=== PATIENT | male | born 1995 | race Asian ===

== ENCOUNTER 2022-08-21 16:48 | Inpatient (IN) | payer MEDICAID, OTHER ==
[~2022-08-21] VITALS: Ht 175.3 cm; Wt 77.6 kg
[2022-08-21] MEDS ORDERED: SERT-162 PO (17:25)
[2022-08-21 17:41] LABS: COVID AG,FIA SOURCE NASOPHARYNGEAL
[2022-08-21 17:44] LABS: EOSINOPHILS % (AUTO) 1.8 % (1.0-6.0); HEMATOCRIT 37.9 % (41-53); HEMOGLOBIN 12.8 g/dL (13.5-17.5); LYMPHOCYTES # (AUTO) 0.3 K/uL (1.0-4.8); LYMPHOCYTES % (AUTO) 12.2 % (22.0-44.0); MEAN CORPUSCULAR HEMOGLOBIN 28.9 pg (26.0-34.0); MEAN CORPUSCULAR HGB CONC 33.7 G/dL (31.0-37.0); MEAN CORPUSCULAR VOLUME 86 fL (80-100); MONOCYTES % (AUTO) 1.7 % (2.0-9.0); NEUTROPHILS # (AUTO) 1.8 K/uL (1.8-7.7); NEUTROPHILS % (AUTO) 84.3 % (40.0-70.0); PLATELET COUNT (AUTO) 145 K/uL (150-450); RED BLOOD CELL COUNT(AUTO) 4.43 MIL/uL (4.50-5.90)
[2022-08-21 17:53] LABS: ANION GAP 12 mmol/L (8-16); CALCIUM, TOTAL 8.5 mg/dL (8.8-10.5); CARBON DIOXIDE 21 mmol/L (22-29); CHLORIDE 102 mmol/L (98-107); CREATININE 1.07 mg/dL (0.60-1.30); GLOMERULAR FILTR. RATE CALC > 60 mL/min (>60); GLUCOSE,RANDOM 115 mg/dL (70-110); POTASSIUM 3.2 mmol/L (3.5-5.1); SODIUM SERUM 135 mmol/L (136-145)
[2022-08-21 17:59] LABS: ALANINE AMINOTRANSFERASE 27 U/L (12-78); ALBUMIN 3.2 g/dL (3.4-5.0); ALKALINE PHOSPHATASE 68 U/L (46-116); ASPARTATE AMINOTRANSFERASE 16 U/L (15-37); BILIRUBIN,TOTAL 1.5 mg/dL (0.1-1.0); TOTAL PROTEIN, SERUM 7.3 g/dL (6.4-8.2)
[2022-08-21] MEDS ORDERED: LORazepam 2 MG TABLET PO PRN (19:45)
[2022-08-21] MEDS ORDERED: MAGNESIUM HYDROXIDE SUSPENSION 30 ML UDCUP PO PRN (19:45)
[2022-08-21] MEDS ORDERED: OLANZapine 5 MG RAPDIS TABLET PO PRN (19:45)
[2022-08-21] MEDS ORDERED: HydrOXYzine PAMOATE 50 MG CAPSULE PO PRN (19:45)
[2022-08-21] MEDS ORDERED: MAG HYDROX/AL HYDROX/SIMETH ES 30 ML SUSPENSION UDCUP PO PRN (19:45)
[2022-08-21] MEDS ORDERED: TUBERCULIN, PURIFIED PROTEIN DERIVATIVE 5 TU/0.1 ML SYRINGE ID ONE (19:45)
[2022-08-21] MEDS ORDERED: ZOLPIDEM TARTRATE 10 MG TABLET PO PRN (19:45)
[2022-08-21] MEDS ORDERED: GuaiFENesin/D-METHORPHAN [SUGAR-FREE] 200-20MG/10 ML SYRUP UDCUP PO PRN (19:45)
[2022-08-21] MEDS ORDERED: PROMETHAZINE HCL 25 MG TABLET PO PRN (19:45)
[2022-08-21] MEDS ORDERED: LOPERAMIDE HCL 2 MG CAPSULE PO PRN (19:45)
[2022-08-21] MEDS: THIAMINE 100 MG TABLET PO SCH (20:44)
[2022-08-21] MEDS: MELATONIN 5 MG TABLET PO SCH (20:44)
[2022-08-21] MEDS ORDERED: OLANZapine 5 MG RAPDIS TABLET PO SCH (21:00)
[2022-08-21 22:30] VITALS: BP 114/103; PULSE 104; RESP 18; TEMP 98.6; O2SAT 97
[2022-08-21 22:42] VITALS: BP 124/53; PULSE 108; RESP 18; TEMP 97.9; O2SAT 97
[2022-08-21 22:45] VITALS: BP 124/83; PULSE 124; RESP 16; TEMP 98.6; O2SAT 100
[2022-08-21] MEDS ORDERED: PERMETHRIN 5% 60 GM CREAM TP ONE (23:45)
[2022-08-22] VITALS (9 sets, daily range): BP systolic 102–126; BP diastolic 57–77; PULSE 60–100; RESP 16–18; TEMP 98.1–98.6; O2SAT 95–99
[2022-08-22] MEDS: MULTIVITAMINS WITH MINERALS, THERAPEUTIC TABLET PO SCH (09:27)
[2022-08-22] MEDS: NALTREXONE HCL 50 MG TABLET PO SCH (09:27)
[2022-08-22] MEDS: OMEGA-3/DHA/EPA/FISH OIL 1,000 MG CAPSULE PO SCH (09:27)
[2022-08-22] MEDS: SERTRALINE HCL 50 MG TABLET PO SCH (09:28)
[2022-08-22] MEDS: FOLIC ACID 1 MG TABLET PO SCH (09:28)
[2022-08-22] MEDS: THIAMINE 100 MG TABLET PO SCH ×2 (09:28→16:38)
[2022-08-22] MEDS: ACETAMINOPHEN 325 MG TABLET PO PRN (17:33)
[2022-08-22] MEDS: MELATONIN 5 MG TABLET PO SCH (20:38)
[2022-08-22] MEDS: OLANZapine 10 MG RAPDIS TABLET PO SCH (20:39)
[2022-08-22] MEDS ORDERED: POTASSIUM CHLORIDE 20 MEQ ER TABLET PO ONE (23:00)
[2022-08-23] MEDS: ACETAMINOPHEN 325 MG TABLET PO PRN (06:26)
[2022-08-23 07:52] LABS: ANION GAP 11 mmol/L (8-16); CALCIUM, TOTAL 8.8 mg/dL (8.8-10.5); CARBON DIOXIDE 27 mmol/L (22-29); CHLORIDE 103 mmol/L (98-107); CHOL/HDL RATIO 6.6 (4.2-7.3); CHOLESTEROL 212 mg/dL (131-200); CREATININE 0.84 mg/dL (0.60-1.30); GLOMERULAR FILTR. RATE CALC > 60 mL/min (>60); GLUCOSE,RANDOM 94 mg/dL (70-110); HDL CHOLESTEROL 32 mg/dL (40-60); LDL CHOL (CALC.) 155 mg/dL (0-130); POTASSIUM 3.9 mmol/L (3.5-5.1); SODIUM SERUM 141 mmol/L (136-145); TRIGLYCERIDES 123 mg/dL (15-150)
[2022-08-23 07:55] LABS: HEMOGLOBIN A1C 5.4 % (3.8-5.6)
[2022-08-23 08:15] VITALS: BP 105/68; PULSE 89; RESP 18; TEMP 98.1; O2SAT 95
[2022-08-23 08:30] LABS: FREE T4 (FREE THYROXINE) 1.46 ng/dL (0.76-1.46); THYROID STIMULATING HORMONE 0.51 uIU/mL (0.36-3.74)
[2022-08-23] MEDS: OMEGA-3/DHA/EPA/FISH OIL 1,000 MG CAPSULE PO SCH (09:19)
[2022-08-23] MEDS: SERTRALINE HCL 50 MG TABLET PO SCH (09:19)
[2022-08-23] MEDS: THIAMINE 100 MG TABLET PO SCH ×2 (09:19→16:09)
[2022-08-23] MEDS: FOLIC ACID 1 MG TABLET PO SCH (09:19)
[2022-08-23] MEDS: NALTREXONE HCL 50 MG TABLET PO SCH (09:19)
[2022-08-23] MEDS: MULTIVITAMINS WITH MINERALS, THERAPEUTIC TABLET PO SCH (09:19)
[2022-08-23] MEDS: SILVER SULFADIAZINE 1% 25 GM CREAM TP SCH ×2 (09:57→16:09)
[2022-08-23] MEDS ORDERED: HYDROCORTISONE 2.5% 30 GM OINTMENT TP PRN (11:00)
[2022-08-23 20:04] VITALS: BP 122/60; PULSE 91; RESP 20; TEMP 98.6; O2SAT 99
[2022-08-23] MEDS: MELATONIN 5 MG TABLET PO SCH (20:10)
[2022-08-23] MEDS: OLANZapine 10 MG RAPDIS TABLET PO SCH (20:10)
[2022-08-24 08:02] VITALS: BP 106/68; PULSE 68; RESP 18; TEMP 98.1; O2SAT 98
[2022-08-24] MEDS ORDERED: SERTRALINE HCL 100 MG TABLET PO SCH (09:00)
[2022-08-24 09:11] VITALS: BP 106/68; PULSE 60; RESP 18; TEMP 98.1; O2SAT 98
[2022-08-24] MEDS: FOLIC ACID 1 MG TABLET PO SCH (10:00)
[2022-08-24] MEDS: MULTIVITAMINS WITH MINERALS, THERAPEUTIC TABLET PO SCH (10:00)
[2022-08-24] MEDS: THIAMINE 100 MG TABLET PO SCH ×2 (10:00→16:31)
[2022-08-24] MEDS: NALTREXONE HCL 50 MG TABLET PO SCH (10:00)
[2022-08-24] MEDS: OMEGA-3/DHA/EPA/FISH OIL 1,000 MG CAPSULE PO SCH (10:01)
[2022-08-24] MEDS: SILVER SULFADIAZINE 1% 25 GM CREAM TP SCH ×2 (10:09→16:31)
[2022-08-24 12:06] LABS: HEPATITIS C AB (EIA) Non Reactive (Non Reactive)
[2022-08-24] MEDS: MELATONIN 5 MG TABLET PO SCH (20:47)
[2022-08-24] MEDS: OLANZapine 10 MG RAPDIS TABLET PO SCH (20:47)
[2022-08-24] MEDS ORDERED: SERT-439 PO (21:10)
[2022-08-24] MEDS ORDERED: NALT50TA PO (21:10)
[2022-08-24] MEDS ORDERED: OMEG-135 PO (21:10)
[2022-08-24] MEDS ORDERED: OLAN10TA26 PO (21:10)
[2022-08-24] MEDS ORDERED: MELA5TAB40 PO (21:10)
[2022-08-24 21:29] VITALS: BP 156/74; PULSE 89; RESP 18; TEMP 98; O2SAT 99
[2022-08-25] MEDS: NALTREXONE HCL 50 MG TABLET PO SCH (09:39)
[2022-08-25] MEDS: THIAMINE 100 MG TABLET PO SCH ×2 (09:39→17:23)
[2022-08-25] MEDS: SERTRALINE HCL 50 MG TABLET PO SCH (09:39)
[2022-08-25] MEDS: FOLIC ACID 1 MG TABLET PO SCH (09:39)
[2022-08-25] MEDS: OMEGA-3/DHA/EPA/FISH OIL 1,000 MG CAPSULE PO SCH (09:39)
[2022-08-25] MEDS: MULTIVITAMINS WITH MINERALS, THERAPEUTIC TABLET PO SCH (09:39)
[2022-08-25 10:11] VITALS: BP 127/71; PULSE 57; RESP 19; TEMP 98; O2SAT 98
[2022-08-25] MEDS: SILVER SULFADIAZINE 1% 25 GM CREAM TP SCH ×3 (10:29→19:00)
[2022-08-25] MEDS ORDERED: VARE1TAB25 PO (16:32)
[2022-08-25] MEDS: MELATONIN 5 MG TABLET PO SCH (20:42)
[2022-08-25] MEDS: OLANZapine 10 MG RAPDIS TABLET PO SCH (20:42)
[2022-08-25 21:50] VITALS: BP 123/61; PULSE 83; RESP 17; TEMP 98.1; O2SAT 97
[2022-08-26 08:00] VITALS: BP 137/67; PULSE 84; RESP 17; TEMP 97.3; O2SAT 100
[2022-08-26] MEDS: THIAMINE 100 MG TABLET PO SCH ×2 (08:28→16:18)
[2022-08-26] MEDS: SERTRALINE HCL 50 MG TABLET PO SCH (08:28)
[2022-08-26] MEDS: OMEGA-3/DHA/EPA/FISH OIL 1,000 MG CAPSULE PO SCH (08:28)
[2022-08-26] MEDS: NALTREXONE HCL 50 MG TABLET PO SCH (08:28)
[2022-08-26] MEDS: MULTIVITAMINS WITH MINERALS, THERAPEUTIC TABLET PO SCH (08:28)
[2022-08-26] MEDS: SILVER SULFADIAZINE 1% 25 GM CREAM TP SCH ×2 (08:29→16:18)
[2022-08-26] MEDS: FOLIC ACID 1 MG TABLET PO SCH (08:29)
== END 2022-08-26 18:15 | disposition home or self-care (01) | DRG 751 ==
LOC: EDSEX 16:55 → EMS 16:55 → B2S 20:00 → B3A 08-23 15:22 → B2S 08-23 17:22 → 3EI 08-23 22:15
PROVIDERS: ADMIT Psychiatry & Neurology Psychiatry; ATTEND Psychiatry & Neurology Psychiatry
DX: F33.3 Major depressive disorder, recurrent, severe with psychotic symptoms (principal); D61.818 Other pancytopenia; E87.6 Hypokalemia; F17.210 Nicotine dependence, cigarettes, uncomplicated; F19.20 Other psychoactive substance dependence, uncomplicated; Z20.822 Contact with and (suspected) exposure to COVID-19; F41.9 Anxiety disorder, unspecified; J44.9 Chronic obstructive pulmonary disease, unspecified; T24.211A Burn of second degree of right thigh, initial encounter; T21.22XA Burn of second degree of abdominal wall, initial encounter; X08.8XXA Exposure to other specified smoke, fire and flames, initial encounter; Z79.899 Other long term (current) drug therapy; Y93.89 Activity, other specified; Y92.89 Other specified places as the place of occurrence of the external cause; Y99.8 Other external cause status; Z91.148 Patient's other noncompliance with medication regimen for other reason
CPT/HCPCS: 71046; 80048; 80053; 80061; 80074; 83036; 84439; 84443; 85025; 86592; 99285; G0480; Q9967; 36415-L1; 36415-TC